=== PATIENT | male | born 1940 | race Caucasian/White ===

== ENCOUNTER 2016-12-22 15:29 | Emergency (ER) | payer MEDICARE | END 2016-12-22 18:20 | disposition short-term general hospital (02) | LOC: ER 15:29 | DX: R41.82 Altered mental status, unspecified (principal); R74.0 Nonspecific elevation of levels of transaminase and lactic acid dehydrogenase [LDH]; I10 Essential (primary) hypertension; Z86.73 Personal history of transient ischemic attack (TIA), and cerebral infarction without residual deficits | CPT/HCPCS: 36415; 51702; 96365; 96367; J0696; J3370 ==